=== PATIENT | female | born 1965 | race Caucasian/White ===

== ENCOUNTER → 2018-06-05 | Outpatient (CLI) | payer OTHER ==
[~2018-06-05] MED LIST: ALL DAY ALLERGY10 M2 PO; ASPIR 8181 M1 PO; ATORVASTATIN CA40 MG PO; BRILINTA90 MG PO; CALCIUM 600 +1 EAC1 PO; COQ-10100 MG PO; COZAAR 25 MG TA25 M2 PO; EFFEXOR 5050 MG/1 T1 PO; FISH OIL 1,001000 M2 PO; GLUCOPHAGE1000 MG PO; LAMICTAL100 MG PO; METOPROLOL TART25 MG PO; TRAZODONE HCL100 MG PO
--- NOTE | 2018-06-05 15:37 | EXE ---
[place] [address] STRESS ECHOCARDIOGRAM Name: GLENIS GARVIN Room: [facility]#: [id number] Admission: 06/05/18 Attend Phys: [place], Discharge: Date of : 61 Date of Service: 06/05/18 1537 Report #: [id number] THIS REPORT FOR: //name// APPROVED REPORT Study performed: 06/05/2018 11:16:48 Exam: Stress Echocardiogram Indication: Chest pain Patient Location: Out-Patient Stress Nurse: Cookie Espinoza RN Supervising Physician: Tim Betancourt MD Ht: 5 ft 6 in HR: 74 bpm BP: 151/92 mmHg Medical History Cardiac Risk Factors: Hyperlipidemia, HTN, DM, FHX of CAD Procedure The patient underwent an Exercise Stress Test using the Son Protocol. Blood pressure, heart rate, and EKG were monitored. An Echocardiogram was performed by biometric technician in four stages in quad fashion. At peak stress, four selected images were obtained and placed side by side with resting images for comparison. Stress Test Details Stress Test: Exercise stress testing was performed using a Son protocol. HR Resting HR: 74 bpm Max Heart Rate (APMHR): 166 bpm Max HR Achieved: 154 bpm Target HR (85% APMHR): 141 bpm % of APMHR: 92 Recovery HR: 87 bpm HR response to stress: Normal HR response to stress BP Resting BP: 151/92 mmHg Max BP: 246/59 mmHg Recovery BP: 167/76 mmHg BP response to stress: Normal blood pressure response to stress. ECG Resting ECG: [place] [address] STRESS ECHOCARDIOGRAM Name: GLENIS GARVIN Room: [facility]#: [id number] Admission: 06/05/18 Attend Phys: [place], Discharge: Date of : 61 Date of Service: 06/05/18 1537 Report #: [id number] Stress ECG: Sinus Rhythm, nonspecific ST-T abnormalities ST Change: Upsloping ST depression Maximum ST Deviation: 1 mm Arrhythmia: None Recovery ECG: Sinus Rhythm, nonspecific ST-T abnormalities Recovery ST Change: Upsloping ST depression Recovery ST Deviation: 0.5 mm Recovery Arrhythmia: None Clinical Reason for Termination: Maximal effort Exercise duration: 4 min sec Highest Stage Achieved: Stage 2: 2.5 mph at 12% grade. Exercise capacity: 4.64 METs Pre-Stress Echo The resting Echocardiogram showed normal left ventricular contractility with an estimated Ejection Fraction of about 55-60%. Post-Stress Echo The stress Echocardiogram showed normal left ventricular contractility with an estimated Ejection Fraction of about >70%. Conclusion Clinical Response: Non-ischemic Exercise Capacity: Below Average Stress ECG Response: Indeterminant Stress Echo Images: Non-ischemic low risk stress echo for future cardiac events Other Information Study Quality: Fair <Conclusion> low risk stress echo for future cardiac events <ELECTRONICALLY SIGNED> By: Tim Betancourt MD, FACC 06/05/18 1537 153 153 Tim Betancourt MD, FACC /INF
== END ==
LOC: M.CRD 10:15
DX: Z95.5 Presence of coronary angioplasty implant and graft (principal)

== ENCOUNTER → 2019-08-10 | Outpatient (CLI) | payer OTHER ==
[~2019-08-10] VITALS: Ht 170.2 cm; Wt 117.9 kg
[~2019-08-10] MED LIST changes: +LOPRESSOR50 MG PO; -METOPROLOL TART25 MG PO; +NITROSTAT0.4 M1 SUBLING; +TURMERIC 500 M1 EACH PO
[2019-08-10 08:21] VITALS: BP 150/81
[2019-08-10 08:29] LABS: HEMATOCRIT 34.3 % (37.0-47.0); HEMOGLOBIN 11.4 gm/dL (12.0-15.0); MCH 25.5 pg (26.0-34.0); MCHC 33.3 g/dL (28.0-37.0); MCV 76.5 fL (80.0-100.0); MPV 8.4 fl. (7.2-11.1); RBC 4.49 mil/uL (4.20-5.00); RDW-CV 15.8 % (10.5-14.5); WBC 6.7 thou/uL (4.0-11.0)
[2019-08-10 08:44] LABS: ANION GAP 10 mmol/L (7-16); BUN 10 mg/dL (7-18); CALCIUM 8.4 mg/dL (8.5-10.1); CHLORIDE 104 mmol/L (98-107); CO2 27 mmol/L (21-32); CREATININE 0.9 mg/dL (0.6-1.3); GLUCOSE 145 mg/dL (70-99); SODIUM 141 mmol/L (136-145)
[2019-08-10 08:45] LABS: SERUM ASSESSMENT Clear
[2019-08-10 08:46] LABS: APTT 25.6 Seconds (25.0-31.3); PROTIME 10.1 Seconds (9.20-11.50)
[2019-08-10 08:49] LABS: CHOLESTEROL 174 mg/dL (<200); HDL CHOLESTEROL 44 mg/dL (>40); LDL CHOLESTEROL 110 mg/dL (<100); TRIGLYCERIDE 104 mg/dL (<150); VLDL 21 mg/dL (<40)
[2019-08-10 10:26] VITALS: BP 141/74
--- NOTE | 2019-08-10 10:34 | EKG ---
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1965 Requested By: Tim Betancourt Order Number: [id number] Reading MD: Tim Betancourt Measurements Intervals [place] Rate: 56 P: 34 MI: 178 QRS: 26 QRSD: 97 T: 33 QT: 455 QTc: 440 Interpretive Statements Sinus rhythm Abnormal R-wave progression, early transition Compared to ECG 01/04/2017 18:17:02 No significant changes Electronically Signed On 08-10-2019 10:33:19 SHRINKING MACHINE OPERATOR by Tim Betancourt [email or web address] <ELECTRONICALLY SIGNED> By: Tim Betancourt MD, [facility] 08/10/19 1033 4 4 Tim Betancourt MD, [facility] /EPI
[2019-08-10 11:00] VITALS: BP 131/63
[2019-08-10 11:15] VITALS: BP 132/66
[2019-08-10 11:44] VITALS: BP 133/63
--- NOTE | 2019-08-10 16:55 | CARD ---
[address] [address] CARDIAC CATH REPORT Name: GLENIS GARVIN Room: [facility]#: [id number] Admission: 08/10/19 Attend Phys: Tim Betancourt MD, F Discharge: Date of : 61 Report #: [id number] THIS REPORT FOR: //name// cc: Roldan Tovar Karl ~ THIS REPORT FOR: //name// APPROVED REPORT Study performed: 08/10/2019 09:12:41 Patient Details Patient Status: Out-Patient Room #: The patient is a 53 year-old female Event Personnel Tim Betancourt MD Safety Representative; RT Bogdan(R), Scrub; Giana Sunshine RN Asbestos Abatement Technician; Neena Watters RN Monitor Procedures Performed cardiac cath Indication Chest pain Risk Factors Arterial Hypertension, Hypercholesterolemia, Diabetes Previous Procedures/Diagnoses Previous PCI Procedure Narrative The patient was brought electively to the Cardiac Catheterization Laboratory and was prepped and draped in a sterile manner. The right wrist was infiltrated with 1% Lidocaine subcutaneous anesthesia. A 6 sheath was inserted into the right femoral artery. Coronary angiography was performed using coronary diagnostic catheters. The right coronary system was accessed and visualized with a Diagnostic catheter. The left coronary system was accessed and visualized with a Diagnostic catheter. The left ventricle was accessed and visualized with a Diagnostic catheter. Left ventricular/Aortic Valve gradient assessed via catheter pullback. Left ventriculogram was performed in NOLAS[place] projection. Closure device was deployed with a 6 Fr Mynx. The patient tolerated the procedure well and there were no complications associated with the procedure. [place] [address] CARDIAC CATH REPORT Name: FANI GARVINETTE Room: [facility].#: [id number] Admission: 08/10/19 Attend Phys: Tim Betancourt MD, F Discharge: Date of : 61 Report #: [id number] procedure from the right radial artery. Arterial blood was obtained, but unable to place guide wire through the needle into the radial artery. It was decided to perform from the right femoral artery. Intraoperative Conscious Sedation Sedation start time: 9:33 Case end Time: 10:07 Fentanyl 75.0 mcg Versed 2.0 mg Fluoro Time: 1.7 minutes Dose: DAP 04151 cGycm2 844 mGy Contrast Type and Amount: Omnipaque 90ml Diagnostic Cath Left Main 0% stenosis LAD stent in mid lad had 0% stenosis Diagonal 1 small diagonal branch had a 70% ostial stenosis Circumflex 0% stenosis Right Coronary 0% stenosis Left Ventriculography The left ventricular ejection fraction is estimated to be 60-65%. Left ventricular wall motion abnormalities are not present. There is no mitral insufficiency. Hemodynamics The aortic pressure is 147/70 mmHg with a mean of 46 mmHg. The left ventricular pressure is 127/8 mmHg with a mean of mmHg. The left ventricular end diastolic pressure is 16 mmHg. There was no gradient across the aortic valve upon pullback. Pullback from the left ventricle to the aorta revealed no gradient across the aortic valve. Conclusion 1. no restenosis of stent in the mid lad 2. LVEF 60-65% 3. suspect noncardiac chest pain Recommendations Aggressive Medical Therapy <ELECTRONICALLY SIGNED> By: Tim Betancourt MD, FACC 08/10/19 1654 1654 [id number] Bteancourt MD, FACC /INF
== END | disposition home or self-care (01) ==
LOC: M.CL 07:21
PROVIDERS: Internal Medicine Cardiovascular Disease
DX: R07.9 Chest pain, unspecified (principal); I10 Essential (primary) hypertension; E78.00 Pure hypercholesterolemia, unspecified; E11.9 Type 2 diabetes mellitus without complications; I25.2 Old myocardial infarction; Z98.890 Other specified postprocedural states; Z79.899 Other long term (current) drug therapy; Z90.49 Acquired absence of other specified parts of digestive tract; Z88.8 Allergy status to other drugs, medicaments and biological substances; Z79.82 Long term (current) use of aspirin